=== PATIENT | female | born 1980 | race Caucasian/White ===

== ENCOUNTER → 2019-07-15 | Outpatient (CLI) | payer OTHER ==
[~2019-07-15] MED LIST: ORTHO TRI-CYCL1 EACH PO; TOPAMAX100 MG PO; XANAX 0.25 MG0.25 MG PO; ZOMIG ZMT5 MG PO
== END ==
LOC: M.CT 10:46
DX: K57.30 Diverticulosis of large intestine without perforation or abscess without bleeding (principal)